=== PATIENT | female | born 1975 | race Caucasian/White ===

== ENCOUNTER 2019-06-23 06:52 | Day surgery (SDC) | payer BC, SELFPAY ==
--- NOTE | 2019-06-09 09:54 | PCM.HP.BLA ---
History and Physical Date of Admission: 06/23/19 HPI: The patient is a 43 year old female presenting for pre-operative visit. She is scheduled for?hysteroscopy with resection of submucosal fibroid and?, for?hysteroscopy with endometrial ablation and resection of submucosal fibroid on?06/23/19. ??Procedure discussed along with risks, benefits and complications. ?Other alternatives discussed for management. Consent form signed??Yes.? PAST?MEDICAL?HISTORY PAST MEDICAL HISTORY Diagnosis Date ? Cerebellar tonsillar ectopia (HCC) ? ? Essential hypertension ? ? Essential hypertension 02/05/2019 ? Pulsatile tinnitus of right ear ? ? Seasonal allergies ? ? ? PAST?SURGICAL?HISTORY PAST SURGICAL HISTORY Procedure Laterality Date ? OFFICE LEEP ? ? ? x2 ? TONSILLECTOMY HX ? CURRENT?MEDICATIONS Current Outpatient Medications Medication Sig Dispense Refill ? rizatriptan (MAXALT) 10 mg tablet Take 1 tablet by mouth as directed. 1 TABLET as needed SEVERE HEADACHE, MAY REPEAT ONCE AFTER 2 HRS, MAX 2/DAY, 3 DAYS/WEEK 10 tablet 6 ? topiramate (TOPAMAX) 25 mg tablet Take by mouth 1 TABLET at bedtime, CAN INCREASE BY 1 TABLET EVERY 2 WEEKS IF NECESSARY TO MAX OF 100MG/HS 120 tablet 6 ? IBUPROFEN ORAL Take by mouth as needed. ? iron bis-gly/FA/C/B12/Ca/succ (IRON-150 ORAL) Take by mouth. ? ? ? calcium carb/mag carb/folic ac (THXDIZKEW-ZGSSXFL-GYEGQ ACID ORAL) Take by mouth. ? ? ? COMPOUNDED PRESCRIPTION CBC OIL ? ? ? cetirizine HCl (ZYRTEC ORAL) Take by mouth. ? ? ? No current facility-administered medications for this visit.? ? ALLERGIES:?Bactrim [Sulfamethoxazole-Trimethoprim]; Sulfa (Sulfonamide Antibiotics) ? PERSONAL HISTORY:? SOCIAL?HISTORY Social History ??Socioeconomic History ?Marital status: ?Spouse name: Not on file ?Number of children: Not on file ?Years of education: Not on file ?Highest education level: Not on file ??Occupational History ?Occupation: WOODWORKING MACHINIST ?Employer: [employer] ??Social Needs ?Financial resource strain: Not on file ?Food insecurity: ?Worry: Not on file ?Inability: Not on file ?Transportation needs: ?Medical: Not on file ?Non-medical: Not on file ??Tobacco Use ?Smoking status: Former Smoker ?Quit date: 08/24/1998 ?Years since quittin.8 ?Smokeless tobacco: Never Used ??Substance and Sexual Activity ?Alcohol use: Yes ?Comment: occasional ?Drug use: No ?Sexual activity: Yes ?Partners: Male ? control/protection: Vasectomy ??Lifestyle ?Physical activity: ?Days per week: Not on file ?Minutes per session: Not on file ?Stress: Not on file ??Relationships ?Social connections: ?Talks on phone: Not on file ?Gets together: Not on file ?Attends shinto service: Not on file ?Active member of club or organization: Not on file ?Attends meetings of clubs or organizations: Not on file ?Relationship status: Not on file ?Intimate partner violence: ?Fear of current or ex partner: Not on file ?Emotionally abused: Not on file ?Physically abused: Not on file ?Forced sexual activity: Not on file ??Other Topics ?Concerns: ?Not on file ??Social History Narrative ?Not on file ? FAMILY HISTORY:? FAMILY?HISTORY FAMILY HISTORY Problem Relation Age of Onset ? Alzheimer's Disease Maternal Grandmother ? ? Cancer Mother ? ? Osteoporosis Mother ? ? Emphysema Paternal Grandmother ? ? Osteoporosis Paternal Grandmother ? ? Macular Degen Paternal Grandmother ? ? Hypertension Father ? ? Hypertension Paternal Grandfather ? ? Seizures Sister ? ? No Known Problems Son ? ? Asthma Son ? ? REVIEW OF SYMPTOMS: GENERAL: denies fevers or chills ENDOCRINOLOGY: has not been on steroids Cardiology : denies palpitations or chest pain Respiratory: denies SOB or cough Hematology: denies history of prolonged bleeding or easy bruising or VTE Allergy: Denies history of personal or family history of allergy to anesthesia ? ? PHYSICAL EXAMINATION: ? VITALS:?Weight 239 lb (108.4 kg), last menstrual period 05/13/2019. ? GENERAL:??The patient is well nourished, well hydrated in no acute distress. ?, The patient is oriented to time, place, and person. NECK:?Supple. No lynphadenopathy, normal thyroid, no thyromegaly. LUNGS:?Clear to auscultation bilaterally. no wheezes, rhonchi or rales HEART:?Regular rate and rhythm, Normal heart sounds and No murmurs or gallops ? IMPRESSION:?menorrhagia and uterine fibroids ? PLAN:???The risks/benefits/alternatives and personal involved for the planned?hysteroscopy with endometrial ablation and resection of uterine fibroid?were reviewed with the patient. Her questions were answered to her satisfaction and she desires to proceed. ?Consent was signed. ?I reviewed with her postop instructions and expectations. ? ? I have reviewed and updated past medical and surgical history, medications and allergies?. this history and physical was completed in my office on 06/08/2019. Amena Gupta M.D.
[2019-06-23] VITALS (7 sets, daily range): BP systolic 107–123; BP diastolic 69–78; PULSE 69–93; RESP 16; TEMP 36.1–36.6; O2SAT 98–100; BMI 38.2
[2019-06-23 07:19] LABS: Internal QC Validated? YES +Cl - CLEAR BKGD; Pregnancy, Urine Negative Negative
[2019-06-23 07:28] LABS: Hematocrit 37.5 % (37-47); Mean Corpuscular Hgb 29.9 pg (27.0-32.0); Mean Corpuscular Volume 93.5 fL (81-99); Mean Platelet Vol. 9.9 fl (6.2-12.0); Platelet Count 308 K/mm3 (150-450); RBC Distribution Width CV 13.8 % (11.6-14.6); RBC Distribution Width SD 47.8 fl (35.1-43.9); Red Blood Count 4.01 M/mm3 (4.2-5.4); White Blood Count 5.4 K/mm3 (4.4-11.0)
[2019-06-23] MEDS: Acetaminophen 500 MG Tablet 1000 MG PO (07:43)
[2019-06-23] MEDS: Lactated Ringers 1,000 ML 100 ML IV ×2 (07:45→09:19)
[2019-06-23] MEDS: Ketorolac 30 MG/ML Syringe IV (07:55)
--- NOTE | 2019-06-23 08:30 | EMB_PTH ---
PATIENT: NOAH MONZON [place] [facility] [place][id number] AGE/SX: 43/F ROOM: RE06/23/[address]: Dr. Amena Gupta MD : 1975 BED: DIS: 06/23/2019 SPEC #: [id number] RECD: 06/23/19 13:00 STATUS: BELÉN GELA #: [id number] MARCIN: 06/23/19 08:[address]: Amena Gupta DEPT: SURGICAL PATHOLOGY RECD BY: Kyrie Smith ENTERED: 06/23/19 13:29 SP TYPE: ENDOM BX/C ASHIA DR: Dr. Robyn Handy MD Tissues: Endometrium, NOS Procedures: Surgery Specimen Level IV HEADER OPERATION: Hysteroscopy, Lamar endometrial ablation, Symphion resection PRE-OP DIAGNOSIS: Menorrhagia and uterine fibroids TISSUE SUBMITTED: Endometrial curettings MICROSCOPIC DIAGNOSIS Endometrial curettings: Proliferative endometrium. Fragments of benign endocervical mucosa. Fragments of myometrium. See comment. SJ:jesenia 06/24/19 COMMENT A few of the endometrial fragments show hyalinized appearance and may represent fragments of polyp. MICROSCOPIC DESCRIPTION Slides are reviewed. GROSS DESCRIPTION Received in fixative is one container labeled with the patient's name and designated endometrial curettings. The specimen consists of multiple irregular fragments of light brown soft tissue that in aggregate measure 2.2 x 2 x 0.2 cm. The specimen is totally submitted in one cassette. / AM:jesenia 06/23/19 TC:5 CPT: 18406
--- NOTE | 2019-06-23 08:32 | DCINST_ITS ---
Discharge Diet: No Restrictions Discharge Activity: Return to Normal Activity, May Shower, May Take a Tub Bath - in 2 weeks. Return to work on:: 06/27/19 May shower in (days): 1 May resume sexual activity in: 2 weeks Call your doctor if your incision/area has: Continuous Slow Oozing, Foul Smelling Discharge Call your doctor if you observe: Fever of 101 or Higher, - - Using more than 2 pads in an hour for 2 hrs in a row Allergies/Adverse Reactions: Allergies Sulfa (Sulfonamide Antibiotics) Allergy (Verified 06/20/19 10:41) swelling/thrush Medications to take at Discharge Calcium Carbonate [Calcium] 600 mg PO DAILY 06/20/19 Cbd Oil 750 mg PO PRN PRN 06/20/19 Ibuprofen 800 mg PO PRN PRN 06/20/19 Iron Carbonyl [Feosol] 45 mg PO DAILYCM 06/20/19 Multivitamin with Minerals [Multiple Vitamin] 1 ea PO DAILY 06/20/19 Rizatriptan Benzoate [Maxalt] 10 mg PO PRN PRN 06/20/19 Topiramate [Topamax] 75 mg PO QHS 06/20/19 Hydrocodone/Acetaminophen [[place] 5-325 Tablet] 1 each PO Q6H PRN PRN 2 Days #5 tablet 06/23/19 Ibuprofen [Motrin] 600 mg PO Q6H PRN #60 tab 06/23/19 The following prescriptions were given: Ibuprofen [Motrin] 600 mg PO Q6H PRN #60 tab PRN Reason: Pain Transmission Status: Pending to [facility] Hydrocodone/Acetaminophen [[place] 5-325 Tablet] 1 each PO Q6H PRN PRN 2 Days #5 tablet PRN Reason: severe pain Transmission Status: Sent to [facility] Primary Care Physician: Robyn Handy MD [Primary Care Provider] - Test Results: Test results from this visit will be discussed in further detail at your follow- up appointment, if applicable. Please Follow Up With: Amena Gupta MD - [phone] When: 4-6 weeks if needed
--- NOTE | 2019-06-23 08:33 | OP.PCM_ITS ---
Report of Operation Date of Procedure: 06/23/19 Pre-Operative Diagnosis: submucosal uterine fibroid, menorrhagia Post-Operative Diagnosis: same Surgery/Procedure Performed:: Hysteroscopy dilation and curettage with symphion resectoscope, partial resection of submucosal uterine fibroid, Lamar endometrial ablation Description of Surgical Findings:: Left endometrium, anterior submucosal fibroid protruding into the endometrial cavity slightly, both tubal ostia were identified and are normal. Normal endocervical canal, anteverted uterus. magician helper: dana cade Type of Anesthesia:: MAC/Supplemental/Local Anesthesiologist: Bubba Mccarthy Special Medications: none Specimen's removed: Endometrial curettings Drains: none Estimated Blood Loss (mL): 20 Fluids Replaced: 1000 Description of Procedure: The patient was taken to the OR where she was prepped and draped in dorsal lithotomy position. The weighted speculum was placed in the vagina and the anterior lip of the cervix was grasped with a single-tooth tenaculum. A paracervical block was administered with [1% lidocaine with 1-100,000 epinephrine solution]. The cervix was dilated serially with Hegar dilators. The [5mm] hysteroscope was placed into the uterine cavity. The left endometrium limited visualization, so gentle sharp curettage was then performed. The hysteroscope was reinserted and and the above findings were noted. Bilateral tub al ostia [were] identified. The Symhipon resection device was readied and inserted. The Symphony on device was then used to clean out the rest of the endometrial cavity, and partially resect the anterior fibroid just until the wall was smooth and a nice cavity for the endometrial ablation was present. The uterus sounded to 9 cm and the cervix to 4-1/2. Nerve endometrial ablation device was set to 4-1/2 cm, placed into the uterine cavity and seated in the cavity in the normal fashion. We passed the safety test, the ablation cycle was initiated and completed in the usual fashion. The instruments were removed from the vagina. The specimen was handed off and sent to pathology. All sponge and needle counts were correct. Vaginal sweep was performed by me. The patient was awakened and taken to the recovery room in stable condition. Hysteroscopic fluid: normal saline, fluid deficit of 500 cc Grafts/Implants Used: none - Complications none - Admit VTE Documentation VTE Present on Admission: No VTE Mechan Device Prophylaxis: SCD's VTE Pharm Prophylaxis ordered?: No Reason prophylaxis not ordered:: Procedure Not Indicated
== END 2019-06-23 10:06 | disposition home or self-care (01) ==
LOC: SDC 06:58 → AC 07:00
PROVIDERS: Anesthesiology; Family Provider Family Medicine; PCP Family Medicine; Referring Provider Obstetrics & Gynecology; Visit Provider Obstetrics & Gynecology
PROC: 0UB98ZZ Excision of Uterus, Via Natural or Artificial Opening Endoscopic (ICD-10-PCS; CPT 58558; principal; 2019-06-23 08:15)
DX: N92.0 Excessive and frequent menstruation with regular cycle (principal); D25.0 Submucous leiomyoma of uterus; I10 Essential (primary) hypertension; D64.9 Anemia, unspecified; Z79.899 Other long term (current) drug therapy; Z87.891 Personal history of nicotine dependence
CPT/HCPCS: 58558; 81025; 85027; 88305; J7120

== ENCOUNTER → 2019-07-04 | Outpatient (CLI) | payer BC, SELFPAY ==
[2019-06-23 07:29] VITALS: BMI 38.2
--- NOTE | 2019-07-04 11:43 | US_ITS ---
STUDY: ULTRASOUND BREAST - RIGHT REASON FOR EXAM: Female, 43 years old. Ultrasound guided right breast biopsy. TECHNIQUE: Axial and longitudinal images of the RIGHT breast were performed with a high resolution ultrasound transducer. # OF IMAGES: 24 COMPARISON: None. FINDINGS: RIGHT Breast: Under direct sonographic guidance, the surgeon performed 4 core biopsies of the 1 cm x 1.4 cm x 0.5 cm hypoechoic irregular nodule at the 5:00 position of the breast at 7 cm from the nipple. US/US Breast Biopsy 1st Lesion IMPRESSION: Ultrasound guided right breast biopsy. ASSESSMENT CATEGORY: BIRADS Category 2: Benign. A letter regarding these results will be sent to the patient by the facility within 30 days. Electronically Signed: Johnny Garrett, at 13:37 EST , Service support ,
--- NOTE | 2019-07-04 12:30 | BRBX_PTH ---
PATIENT: NOAH MONZON LOC: [facility] U#:[id number] AGE/SX: 43/F ROOM: RE07/04/[address]: Dr. Nancy Huynh MD : 1975 BED: DIS: 07/04/2019 SPEC #: [id number] RECD: 07/04/19 13:20 STATUS: BELÉN REMaria Victoria #: [id number] MARCIN: 07/04/19 12:[address]: Nancy Huynh DEPT: SURGICAL PATHOLOGY RECD BY: Kyrie Smith ENTERED: 07/04/19 13:53 SP TYPE: BREAST BX OTHR DR: Dr. Robyn Handy MD Tissues: Right breast, NOS Procedures: Surgery Specimen Level IV HEADER OPERATION: Right breast biopsy PRE-OP DIAGNOSIS: Right breast lesion TISSUE SUBMITTED: Right breast tissue ISCHEMIC TIME: 1 minute FIXATION TIME: 6 hours MICROSCOPIC DIAGNOSIS Right breast lesion, core biopsy: Hyalinized fibroadenoma. Negative for atypia or malignancy. See comment. SJ:jesenia 07/05/19 COMMENT Correlation with clinical, radiologic findings and appropriate follow up are necessary. MICROSCOPIC DESCRIPTION Slides are reviewed. GROSS DESCRIPTION Received in fixative is one container labeled with the patient's name and designated right breast. The specimen consists of multiple elongated fragments of brown-yellow fibroadipose tissue that in aggregate measure 3 x 1.5 x 0.1 cm. The entire specimen is submitted in one cassette. / KAVIN:jesenia 07/04/19 TC:1 CPT: 04756
--- NOTE | 2019-07-04 13:31 | PCM.OPRPT ---
Report of Operation Date of Procedure: 07/04/19 Pre-Operative Diagnosis: abnormal lesion seen on right breast US and mammograms Post-Operative Diagnosis: same Surgery/Procedure Performed:: US guided right breast needle core biopsy Description of Surgical Findings:: 5:00 US right breast lesion 7 cm from nipple, in inframammary ridge Type of Anesthesia:: Local - 1% xylocaine Specimen's removed: right breast tissue Estimated Blood Loss (mL): minimal Fluids Replaced: none Description of Procedure: After informed consent was given, the patient was brought to the ultrasound suite. Appropriate time out protocol was followed. She was then placed in the supine position. Using the ultrasound transducer for real time imaging, the suspicious lesion was localized and then marked with a marking pen on the patient?s right breast. The location of the lesion was at 5:00, 7 cm from the nipple. It was at the inframmary ridge of the right breast. The US transducer was in the transverse position. The skin at where the biopsy stylus would be entering into the patient?s breast was then cleansed with alcohol and the skin and subcutaneous tissues at the biopsy site were infiltrated with 1% xylocaine. A small skin incision was made with an 11 blade scalpel. Holding the transducer in my left hand, I guided the biopsy stylus to just beneath the lesion under direct ultrasound guidance. The biopsy trough was then opened and noted under ultrasound guidance, such that it was ensured that the lesion was able to be biopsied. Several core samples of breast tissue were then obtained and this was visualized under ultrasound guidance. A marker clip was then placed into the patient?s breast at the biopsy site and this was visualized under ultrasound guidance. Hemostasis was achieved using pressure. The skin incision was then reapproximated using steristrips and a sterile dressing was applied. The patient tolerated the procedure well. A post procedure mammogram was obtained and revealed the marker clip in the vicinity of the abnormal lesion. She was discharged from the radiology suite in stable condition. - Complications none noted
== END | disposition home or self-care (01) ==
LOC: OPUS 11:42
PROVIDERS: Family Provider Family Medicine; PCP Family Medicine; Referring Provider Surgery; Visit Provider Surgery
DX: R92.8 Other abnormal and inconclusive findings on diagnostic imaging of breast (principal)
CPT/HCPCS: 19083; 88305